=== PATIENT | female | born 1995 | race Caucasian/White ===

== ENCOUNTER 2020-12-24 05:31 | Emergency (ER) | payer BC, OTHER ==
--- NOTE | 2020-12-24 06:10 | EDM.PDOC ---
ED HPI GENERAL MEDICAL PROBLEM - General Chief Complaint: Laceration Stated Complaint: Laceration Time Seen by Provider: 12/24/20 05:50 Source of Information: Reports: Patient History Limitations: Reports: No Limitations - History of Present Illness INITIAL COMMENTS - FREE TEXT/NARRATIVE: Left forearm laceration due to metal sheet. Tetanus is up to date. - Related Data Allergies Allergy/AdvReac Type Severity Reaction Status Date / Time No Known Allergies Allergy Verified 12/24/20 05:32 Home Meds: Home Meds . [Unable to Verify Home Med List] 12/24/20 [History] Past Medical History Psychiatric History: Reports: Anxiety, Depression - Past Surgical History HEENT Surgical History: Reports: Oral Surgery ED ROS GENERAL - Review of Systems Review Of Systems: See Below Skin: Reports: Other (laceration left lateral forearm) ED EXAM, SKIN/RASH Exam: See Below Exam Limited By: No Limitations General Appearance: Alert, WD/WN, No Apparent Distress Eye Exam: Bilateral Eye: EOMI, PERRL Ears: Hearing Grossly Normal Throat/Mouth: Normal Voice, No Airway Compromise Head: Atraumatic, Normocephalic Neck: Supple Respiratory/Chest: No Respiratory Distress Extremities: Normal Range of Motion, Normal Capillary Refill Neurological: Alert, Oriented, Normal Cognition, Normal Gait, No Motor/Sensory Deficits Psychiatric: Normal Affect, Normal Mood Skin: Wound/Incision (small linear laceration lateral left forearm. Very superficial except for distal 1cm which breaks through epidermis fully. No bleeding) ED SKIN PROCEDURES - Laceration/Wound Repair Left Lateral Distal Arm Appearance: Subcutaneous, Linear, Clean Distal NVT: Neuro & Vascular Intact, No Tendon Injury Anesthetic Type: Other (NONE) Skin Prep: Saline Exploration/Debridement/Repair: Wound Explored, In a Bloodless Field, Explored to Base, No Foreign Material Found Lac/Wound length In cm: 1.0 Suture Size: 4-0 # of Sutures: 1 Suture Type: Nylon, Interrupted Drain Placement: No Sterile Dressing Applied: Nurse Tetanus Status Addressed: Yes Complications: No Course - Vital Signs Last Recorded V/S: Last Vital Signs Temp 36.6 C 12/24/20 05:49 Pulse 119 H 12/24/20 05:49 Resp 14 12/24/20 05:49 BP 125/59 L 12/24/20 05:49 Pulse Ox 100 12/24/20 05:49 - Re-Assessments/Exams Free Text/Narrative Re-Assessment/Exam: 12/24/20 06:15 Laceration was very shallow. Only required single suture in distal portion to bring edges of wound together. Wound care reviewed. Suture out next Saturday. Departure - Departure Time of Disposition: 06:07 Disposition: Home, Self-Care 01 Condition: Good Clinical Impression: Laceration of forearm Qualifiers: Encounter type: initial encounter Laterality: left Qualified Code(s): S51.812A - Laceration without foreign body of left forearm, initial encounter - Discharge Information *PRESCRIPTION DRUG MONITORING PROGRAM REVIEWED*: Not Applicable *COPY OF PRESCRIPTION DRUG MONITORING REPORT IN PATIENT SCOTT: Not Applicable Instructions: Sutures, Estelline, or Adhesive Wound Closure, [id number] Referrals: Priscila Bain NP [Primary Care Provider] - Forms: ED Department Discharge Additional Instructions: Keep area clean. OK to apply topical antibiotic several times a day. Cover it with bandage the first 3 days for increased protection. Sutures out next Saturday. We take them out for free at our clinic or you can see [facility] nurse as we discussed. Follow up as needed if you have problems/signs of infection. Sepsis Event Note (ED) - Evaluation Sepsis Screening Result: No Definite Risk - Focused Exam Vital Signs: Vital Signs Temp Pulse Resp BP Pulse Ox 12/24/20 05:49 36.6 C 119 H 14 125/59 L 100
== END 2020-12-24 06:15 | disposition home or self-care (01) ==
LOC: LL.ED 05:31
DX: S51.812A Laceration without foreign body of left forearm, initial encounter (principal); W26.8XXA Contact with other sharp object(s), not elsewhere classified, initial encounter
CPT/HCPCS: 12001; 99282; 99282-25

== ENCOUNTER 2021-03-05 03:18 | Emergency (ER) | payer BC ==
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
[2021-03-05] MEDS ORDERED: Bacitracin/Neomycin/Polymyxin B Oint 0.9 GM U/D Packet TOP ONE (03:29)
== END 2021-03-05 04:55 | disposition home or self-care (01) ==
LOC: LL.ED 03:18
DX: S93.492A Sprain of other ligament of left ankle, initial encounter (principal); S80.212A Abrasion, left knee, initial encounter; S80.211A Abrasion, right knee, initial encounter; S50.312A Abrasion of left elbow, initial encounter; F10.129 Alcohol abuse with intoxication, unspecified; F41.8 Other specified anxiety disorders; E66.9 Obesity, unspecified; Z71.6 Tobacco abuse counseling; V86.59XA Driver of other special all-terrain or other off-road motor vehicle injured in nontraffic accident, initial encounter
CPT/HCPCS: 73080-LT; 73610-LT; 99283; 99284-25

== ENCOUNTER 2024-02-24 17:10 | Emergency (ER) | payer OTHER, BC ==
[2024-02-24] MEDS ORDERED: Lactated Ringers 1,000 ML IV ONE ×2 (17:24→18:25)
[2024-02-24] MEDS ORDERED: Sodium Chloride 0.9% 10 ML Syringe FLUSH PRN (17:24)
[2024-02-24 17:32] LABS: BASOPHILS ABSOLUTE AUTO 0.01 K/uL (0.00-0.20); BASOPHILS PERCENT AUTO 0.1 % (0.0-2.0); EOSINOPHILS ABSOLUTE AUTO 0.11 K/uL (0.00-0.50); EOSINOPHILS PERCENT AUTO 1.2 % (0.0-5.0); HEMATOCRIT 35.4 % (34.0-46.0); HEMOGLOBIN 11.7 g/dL (11.7-15.5); LYMPHOCYTES ABSOLUTE AUTO 2.39 K/uL (0.50-3.50); LYMPHOCYTES PERCENT AUTO 27.1 % (10.0-50.0); MEAN CORPUSCULAR HEMOGLOBIN 29.5 pg (28.2-33.3); MEAN CORPUSCULAR HGB CONC 33.1 g/dL (31.7-36.0); MEAN CORPUSCULAR VOLUME 89.2 fL (84.0-98.0); MONOCYTES ABSOLUTE AUTO 0.59 K/uL (0.00-1.00); MONOCYTES PERCENT AUTO 6.7 % (2.0-14.0); NEUTROPHILS ABSOLUTE AUTO 5.72 K/uL (1.40-7.00); NEUTROPHILS PERCENT AUTO 64.9 % (45.0-80.0); PLATELET COUNT,PLT 324 K/uL (150-350); RED BLOOD CELL COUNT 3.97 M/uL (3.77-5.09); RED CELL DISTRIBUTION WIDTH 12.5 % (11.2-14.1); WHITE BLOOD CELL COUNT,WBC 8.8 K/uL (4.0-10.2)
[2024-02-24] MEDS ORDERED: fentaNYL 50 MCG/ML SDV ONE (17:34)
[2024-02-24] MEDS ORDERED: fentaNYL 50 MCG/ML SDV IVPUSH ONE ×2 (17:35→18:35)
[2024-02-24 17:41] LABS: ALANINE AMINOTRANSFERASE,ALT 17 U/L (12-78); ALBUMIN 3.5 g/dL (3.4-5.0); ALKALINE PHOSPHATASE 59 IU/L (46-116); ANION GAP 11.2 meq/L (7-15); ASPARTATE AMNIOTRANSFERASE,AST 10 U/L (15-37); BILIRUBIN TOTAL 0.1 mg/dL (0.2-1.0); BLOOD UREA NITROGEN,BUN 12 mg/dL (7-18); CARBON DIOXIDE,CO2 24.8 mmol/L (21.0-32.0); CHLORIDE,CL 105 mmol/L (98-107); CREATINE KINASE,CK 83 U/L (26-308); CREATININE 0.99 mg/dL (0.51-1.17); GLUCOSE RANDOM 104 mg/dL (70-99); POTASSIUM,K 3.9 mmol/L (3.5-5.1); PROTEIN TOTAL,TP 6.8 g/dL (6.4-8.2); SODIUM,NA 141 mmol/L (136-145)
[2024-02-24] MEDS ORDERED: Iopamidol 755 Mg/ML 100 ML Bottle ONE (17:44)
[2024-02-24] MEDS: Iopamidol 755 Mg/ML 100 ML Bottle IVPUSH ONE (17:48)
[2024-02-24 17:49] LABS: ESTIMATED GFR 79 mL/min (>=60)
[2024-02-24 17:51] LABS: O2 DELIVERY DEVICE ROOM AIR; PCO2 VENOUS 27 mmHG (41-51); PH,VENOUS 7.44 (7.31-7.41); PO2 VENOUS 54 mmHG
[2024-02-24 17:52] LABS: BASE EXCESS VENOUS -4 mmol/L ((-2)-3); BICARBONATE,VENOUS 19 mmol/L (23-28); O2 SATURATION VENOUS 90 %
[2024-02-24 18:13] LABS: INR 0.9 (0.9-1.1); PROTHROMBIN TIME 9.2 SEC (9.0-11.1)
[2024-02-24] MEDS ORDERED: Ondansetron 4 MG/2 ML SDV IVPUSH ONE (18:33)
== END 2024-02-24 18:39 ==
LOC: LL.ED 17:10
DX: S30.1XXA Contusion of abdominal wall, initial encounter (principal); Z79.899 Other long term (current) drug therapy; W23.0XXA Caught, crushed, jammed, or pinched between moving objects, initial encounter; Y92.63 Factory as the place of occurrence of the external cause; Y93.89 Activity, other specified; Y99.0 Civilian activity done for income or pay
CPT/HCPCS: 36415; 51702; 71260; 74177; 80053; 82550; 82803; 83605; 83735; 85025; 85610; 85730; 93005; 96361; 96374; 96375; 96376; 99284; 99291-25; 99292; G0390; J3010; J7120; Q9967